=== PATIENT | female | born 1975 | race Caucasian/White ===

== ENCOUNTER 2022-10-01 09:44 | Emergency (ER) | payer OTHER ==
[2022-10-01 09:54] VITALS: BP 132/79; PULSE 78; RESP 18; TEMP 98.4; BMI 27.1
[2022-10-01] MEDS ORDERED: IBUPROFEN 600 MG TABLET (FP) PO ONE ×2 (11:39→11:40)
== END 2022-10-01 12:50 | disposition home or self-care (01) ==
LOC: JERFT 09:44
DX: R07.81 Pleurodynia (principal); M79.645 Pain in left finger(s); R22.32 Localized swelling, mass and lump, left upper limb; W18.2XXA Fall in (into) shower or empty bathtub, initial encounter
CPT/HCPCS: 71111-TC-FY; 99283-25

== ENCOUNTER 2022-10-17 15:38 | Emergency (ER) | payer OTHER ==
[2022-10-17 15:53] VITALS: BP 137/78; PULSE 98; RESP 18; TEMP 98; BMI 27.1
[2022-10-17] MEDS ORDERED: IBUPROFEN 600 MG TABLET (FP) PO ONE ×2 (18:25→18:28)
== END 2022-10-17 18:48 | disposition home or self-care (01) ==
LOC: JERFT 15:38
DX: M79.645 Pain in left finger(s) (principal); R22.32 Localized swelling, mass and lump, left upper limb; S60.941A Unspecified superficial injury of left index finger, initial encounter; W18.49XA Other slipping, tripping and stumbling without falling, initial encounter; Y92.002 Bathroom of unspecified non-institutional (private) residence as the place of occurrence of the external cause
CPT/HCPCS: 73130-TC-LT-FY; 99283-25

== ENCOUNTER 2023-11-23 15:45 | Emergency (ER) | payer OTHER ==
[2023-11-23 15:51] VITALS: BP 167/91; PULSE 67; RESP 18; TEMP 98.4; BMI 24.9
[2023-11-23] MEDS ORDERED: KETOROLAC TROMETHAMINE 30 MG/1 ML VIAL ONE (16:22)
[2023-11-23] MEDS: KETOROLAC TROMETHAMINE 30 MG/1 ML VIAL IM ONE (16:25)
== END 2023-11-23 18:31 | disposition home or self-care (01) ==
LOC: JERFT 15:45
DX: S23.41XA Sprain of ribs, initial encounter (principal); X58.XXXA Exposure to other specified factors, initial encounter
CPT/HCPCS: 71046-TC-FY; 99284-25